=== PATIENT | male | born 1995 | race Caucasian/White ===

== ENCOUNTER 2020-07-27 16:14 | Emergency (ER) | payer OTHER ==
[~2020-07-27] VITALS: Ht 182.9 cm; Wt 92.1 kg
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
[2020-07-27 19:21] LABS: HEMATOCRIT 47.8 % (42.0-52.0); HEMOGLOBIN 16.4 g/dl (13.5-17.5); MEAN CORPUSCULAR HEMOGLOBIN 30.1 pg (27.0-33.0); MEAN CORPUSCULAR HGB CONC 34.3 g/dl (32.0-36.5); MEAN CORPUSCULAR VOLUME 87.9 fl (80.0-96.0); PLATELET COUNT, AUTOMATED 240 10^3/uL (150-450); RED BLOOD COUNT 5.44 10^6/uL (4.30-6.10); WHITE BLOOD COUNT 12.3 10^3/uL (4.0-10.0)
[2020-07-27] MEDS ORDERED: ISOVUE-370 76% 100ML VIAL As Ordered ONE (19:22)
[2020-07-27 19:35] LABS: INR 1.04; PROTHROMBIN TIME 13.8 SECONDS (12.5-14.3)
[2020-07-27 19:41] LABS: BLOOD UREA NITROGEN 13 MG/DL (7-18); CALCIUM LEVEL 9.4 MG/DL (8.5-10.1); CARBON DIOXIDE LEVEL 29 MEQ/L (21-32); CHLORIDE LEVEL 104 MEQ/L (98-107); CREATININE FOR GFR 1.03 MG/DL (0.70-1.30); GLOMERULAR FILTRATION RATE > 60.0 (>60); GLUCOSE, FASTING 96 MG/DL (70-100); POTASSIUM SERUM 3.9 MEQ/L (3.5-5.1); SODIUM LEVEL 138 MEQ/L (136-145)
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
[2020-07-27] MEDS ORDERED: PERCOCET 5MG/325MG TAB PO ONE (21:05)
[2020-07-27] MEDS ORDERED: OXYCODONE/APAP 5MG/325MG(BULK FOR ED) 1 TABLET PO ONE (21:05)
[2020-07-27] MEDS ORDERED: PERC5TAB12 PO (21:07)
[2020-07-27 21:29] VITALS: BP 136/63
== END 2020-07-27 22:09 | disposition home or self-care (01) ==
LOC: M ED 16:14
DX: S52.511A Displaced fracture of right radial styloid process, initial encounter for closed fracture (principal); T14.8XXA Other injury of unspecified body region, initial encounter; V29.9XXA Motorcycle rider (driver) (passenger) injured in unspecified traffic accident, initial encounter
CPT/HCPCS: 36415; 70450; 70496; 71250; 72125; 73110; 80047; 80048; 85027; 85610; 99284; Q9967